=== PATIENT | male | born 1985 | race Caucasian/White ===

== ENCOUNTER 2023-01-27 16:37 | Emergency (ER) | payer SELFPAY ==
[2023-01-27 16:45] VITALS: BP 148/100; PULSE 108; RESP 16; TEMP 37.4; O2SAT 98; BMI 25.1
[2023-01-27 16:52] VITALS: RESP 16
--- NOTE | 2023-01-27 16:54 | PC.NURSE ---
pt states he woke up this morning and sat up in bed, felt dizzy and laid back down. also that when he turns his head fast his vision goes a little blurry. pt had a strong walk back to room and is AxOx4. denies RITTER or N/V. Pt is also here for eval of dental caries on both sides of mouth. denies any foul taste or drainage.
--- NOTE | 2023-01-27 17:00 | ED_ITS ---
HPI - Dental/Oral General Chief complaint: Dental/Oral Stated complaint: UNSTEADY GAIT, ALTERED THINKING, TOOTHACHE Time Seen by Provider: 01/27/23 16:57 Source: patient Mode of arrival: walk-in Limitations: no limitations History of Present Illness HPI Narrative: Patient is a 37-year-old male who presents the emergency department for the evaluation of continued dental pain to tooth #17 and tooth #32. Patient was seen by his dentist on 01/12/23 with multiple dental caries and was placed on amoxicillin and ibuprofen which he has finished. He reports continued pain in the jaw. He denies fevers or drainage. No facial swelling. He further complains of feeling unsteady over the last day. He states when he changes his position and stands up, he feels very dizzy and unsteady, no falls or injuries. He states when he turns his head his vision seems blurry for a moment. He has had no visual loss, headache, double vision, peripheral paresthesias. He has not had any recent upper respiratory symptoms. He denies any history of vertigo. Related Data Previous Rx's Medication Instructions Recorded clindamycin HCl 150 mg capsule 300 mg PO Q6H 10 days #80 caps 01/27/23 ketorolac 10 mg tablet 10 mg PO TID PRN pain #10 tabs 01/27/23 meclizine 25 mg chewable tablet 25 mg PO QID PRN dizziness #12 tabs 01/27/23 (Antivert) ondansetron 4 mg disintegrating 4 mg PO Q6H PRN nausea and 01/27/23 tablet vomiting #12 tabs Allergies Allergy/AdvReac Type Severity Reaction Status Date / Time No Known Drug Allergies Allergy Verified 01/27/23 16:44 Review of Systems ROS Constitutional Denies: fever or chills Eyes Reports: blurry vision Ears, nose, mouth, and throat Denies: throat pain Cardiovascular Denies: chest pain Respiratory Denies: shortness of breath or cough Gastrointestinal Denies: nausea or vomiting Musculoskeletal Denies: back pain or neck pain Integumentary/Breast Denies: rash Neurological Reports: dizziness; Denies: headache Hematologic/Lymphatic Denies: easy bruising Allergic/Immunologic Denies: hives PFSH PFS Social History Smoking status: Current every day smoker Exam Narrative Exam Narrative: Gen.: Awake, alert, in no distress; ambulatory in the Emergency Room with steady gait Head: Normocephalic, atraumatic ENT: Moist mucous membranes; dental caries noted to multiple teeth, tenderness of tooth #17 and tooth #32, worse on the right mandible. No palpable abscess. No redness or swelling under the tongue. Clear speech. Bilateral tympanic membranes are clear. No pharyngeal erythema or tonsillar edema. 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 No unilateral weakness noted Psych: Normal mood and affect Neuro: No focal neuro deficit; patient with clear speech, awake and alert Skin: Warm, dry, intact Constitutional Vital Signs, click to edit/add: Last Vital Signs Temp 99.3 F 01/27/23 16:45 Pulse 108 H 01/27/23 16:45 Resp 16 01/27/23 16:52 BP 148/100 H 01/27/23 16:45 Pulse Ox 98 01/27/23 16:45 O2 Del Method Room Air 01/27/23 16:45 Course Vital Signs Vital signs: Vital Signs Temperature 99.3 F 01/27/23 16:45 Pulse Rate 108 H 01/27/23 16:45 Respiratory Rate 16 01/27/23 16:45 Blood Pressure 148/100 H 01/27/23 16:45 Pulse Oximetry 98 01/27/23 16:45 Oxygen Delivery Method Room Air 01/27/23 16:45 Temperature 99.3 F 01/27/23 16:45 Pulse Rate 108 H 01/27/23 16:45 Respiratory Rate 16 01/27/23 16:52 Blood Pressure 148/100 H 01/27/23 16:45 Pulse Oximetry 98 01/27/23 16:45 Oxygen Delivery Method Room Air 01/27/23 16:45 MDM - Dental/Oral MDM Narrative Medical decision making narrative: After examining the patient, I recommended doing a CT scan of the brain and EKG as he has never had dizziness or vertigo like this previously. He has a normal neuro exam with stable vital signs. I also recommended baseline labs to evaluate electrolytes, kidney function, and blood counts. Patient is uncomfortable with a further workup as he is uninsured. He states he would like to pursue conservative treatment at this time. He states his goal in coming to the emergency department today was to get additional antibiotics until he can follow-up with his dentist. I had a lengthy discussion with the patient about signs and symptoms to watch for regarding his dizziness and unsteady gait. At this time we will defer additional testing and treat with clindamycin, Antivert, Zofran, Toradol for pain. Topical analgesia was provided for the teeth. He understands he should return to the emergency department if symptoms change or worsen. Discharge Plan Discharge Chief Complaint: Dental/Oral Clinical Impression: Dizziness, Dental caries, Toothache Patient Disposition: Home, Self-Care Time of Disposition Decision: 16:58 Condition: Good Prescriptions / Home Meds: New clindamycin HCl 150 mg capsule 300 mg PO Q6H 10 Days Qty: 80 0RF ketorolac 10 mg tablet 10 mg PO TID PRN (Reason: pain) Qty: 10 0RF meclizine [Antivert] 25 mg tablet,chewable 25 mg PO QID PRN (Reason: dizziness) Qty: 12 0RF ondansetron 4 mg tablet,disintegrating 4 mg PO Q6H PRN (Reason: nausea and vomiting) Qty: 12 0RF Instructions: Dizziness (ED), Toothache (ED) Additional Instructions: Follow up with your dentist as scheduled, return to the ER if you develop any worsening of your symptoms Stand Alone Forms: Portal Instructions Referrals: Physician,Non-Staff, MD [Primary Care Provider] - 1 week Discharge Date/Time: 01/27/23 17:17
[2023-01-27] MEDS: BENZOCAINE 30 ML, lidocaine HCL 15 ML MM (17:14)
== END 2023-01-27 17:17 | disposition home or self-care (01) ==
PROVIDERS: Emergency Provider Emergency Medicine
DX: K02.9 Dental caries, unspecified (principal); K08.89 Other specified disorders of teeth and supporting structures; R42 Dizziness and giddiness; F17.210 Nicotine dependence, cigarettes, uncomplicated
CPT/HCPCS: 99283

== ENCOUNTER 2025-05-22 14:48 | Emergency (ER) | payer SELFPAY ==
[2025-05-22 14:53] VITALS: BP 154/99; PULSE 133; TEMP 36.8; O2SAT 98; BMI 25.1
--- NOTE | 2025-05-22 15:20 | ED.GENADUL1 ---
HPI HPI - General Adult General Chief complaint: Back Pain/Injury Stated complaint: LOWER EXTREMITY PAIN Time Seen by Provider: 05/22/25 15:08 Source: patient Mode of arrival: walk-in Limitations: no limitations History of Present Illness HPI narrative: 40-year-old male presents for left lower back pain which goes down his leg towards the ankle. He was doing some lateral stretching exercises 5 days ago when this happened and felt pain in that region. He did not fall and nothing struck him in his back. No pain on the right side. No weakness in his leg. Related Data Previous Rx's ?Medication ?Instructions ?Recorded clindamycin HCl 150 mg capsule 300 mg (2 x 150 mg) PO Q6H 10 days 01/27/23 #80 caps ketorolac 10 mg tablet 10 mg PO TID PRN pain #10 tabs 01/27/23 meclizine 25 mg chewable tablet 25 mg PO QID PRN dizziness #12 tabs 01/27/23 (Antivert) ondansetron 4 mg disintegrating 4 mg PO Q6H PRN nausea and 01/27/23 tablet vomiting #12 tabs acetaminophen 300 mg-codeine 30 mg 1 tab PO Q6H PRN pain 5 days #20 05/22/25 tablet tabs prednisone 10 mg tablet See Rx Instructions .Route 05/22/25 .COMPLEX #30 tabs Allergies Allergy/AdvReac Type Severity Reaction Status Date / Time No Known Drug Allergies Allergy Verified 01/27/23 16:44 Review of Systems ROS Narrative A ten point review of systems is negative except as noted above. PFSH PFSH Social History Smoking status: Current every day smoker Little interest or pleasure in doing things: not at all Feeling down, depressed, or hopeless: not at all Exam Narrative Exam Narrative: Nurses note and vital signs reviewed General:The patient appears well and in no apparent distress.Patient is resting comfortably on cart. Skin:Warm, dry, no pallor noted.There is no rash noted. Head:Normocephalic, atraumatic Eye: Normal conjunctiva, no drainage Ears, Nose, Mouth, and Throat: oral mucosa is moist. Nares patent. Cardiovascular:Regular Rate and Rhythm Respiratory:Patient is in no distress, no accessory muscle use, lungs are clear to auscultation, no wheezing, rales or rhonchi Back:non-tender, no CVA tenderness bilaterally to percussion. GI: Soft and nontender Musculoskeletal: Back is examined. There is a patch of psoriasis on his left lower back. No palpable tenderness. Left hip and knee and ankle are full range of motion. No bruise or rash on his back. Motor strength intact Neurological:A&O, normal speech Psychiatric:Cooperative Constitutional Vital Signs, click to edit/add: Last Vital Signs Temp 98.3 F 05/22/25 14:53 Pulse 133 H 05/22/25 14:53 Resp 18 05/22/25 14:53 BP 154/99 H 05/22/25 14:53 Pulse Ox 98 05/22/25 14:53 O2 Del Method Room Air 05/22/25 14:53 Course Vital Signs Vital signs: Vital Signs Temperature 98.3 F 05/22/25 14:53 Pulse Rate 133 H 05/22/25 14:53 Respiratory Rate 18 05/22/25 14:53 Blood Pressure 154/99 H 05/22/25 14:53 Pulse Oximetry 98 05/22/25 14:53 Oxygen Delivery Method Room Air 05/22/25 14:53 Temperature 98.3 F 05/22/25 14:53 Pulse Rate 133 H 05/22/25 14:53 Respiratory Rate 18 05/22/25 14:53 Blood Pressure 154/99 H 05/22/25 14:53 Pulse Oximetry 98 05/22/25 14:53 Oxygen Delivery Method Room Air 05/22/25 14:53 Medical Decision Making MDM Narrative Medical decision making narrative: X-rays show degenerative changes and he will be prescribed prednisone and Tylenol 3. The patient also he reported some tinnitus in his right ear and is worried about tendon cysts associated with psoriasis. He was referred to ENT for follow-up and was given PCP list as well. Treatment diagnosis and follow-up were discussed with the patient. Differential Diagnosis Differential Diagnosis: Degenerative disc disease, sciatica, lumbar radiculopathy Imaging Data X-ray lumbar: Radiologist's impression: ITS Impressions Lumbar Spine X-Ray 05/22/25 15:42 IMPRESSION: Degenerative changes L5-S1. Otherwise, negative acute osseous abnormality. Impression dictated by: Vazquez Anna M.D. 05/22/2025 4:19 PM [facility]ictation [facility] Electronically authenticated by: [id number] Y Date: 05/22/2025 16:19 Discharge Plan Discharge Chief Complaint: Back Pain/Injury Clinical Impression: Lumbar radiculopathy Patient Disposition: Home, Self-Care Time of Disposition Decision: 16:34 Condition: Good Mode of Transportation: Private Vehicle Prescriptions / Home Meds: New acetaminophen-codeine 300-30 mg tablet 1 tab PO Q6H PRN (Reason: pain) 5 Days Qty: 20 0RF prednisone 10 mg tablet See Rx Instructions .ROUTE .COMPLEX Qty: 30 0RF Rx Instructions: 4 by mouth daily for three days then 3 by mouth daily for three days then 2 by mouth daily for three days then 1 by mouth daily for three days No Action clindamycin HCl 150 mg capsule 300 mg PO Q6H 10 Days Qty: 80 0RF ketorolac 10 mg tablet 10 mg PO TID PRN (Reason: pain) Qty: 10 0RF meclizine [Antivert] 25 mg tablet,chewable 25 mg PO QID PRN (Reason: dizziness) Qty: 12 0RF ondansetron 4 mg tablet,disintegrating 4 mg PO Q6H PRN (Reason: nausea and vomiting) Qty: 12 0RF Print Language: Citizen Of [place] Instructions: Lumbar Radiculopathy (ED) Referrals: Bella Will MD [Physician, Ear, Nose, Throat] - 1 week Physician,Non-Staff, [Primary Care Provider] - 1 week
[2025-05-22] MEDS: KETOROLAC TROMETHAMINE 60 MG/2 ML VIAL IM (15:29)
--- NOTE | 2025-05-22 15:42 | XR_ITS ---
[place] [address] Patient Name: ABENA RUST MRN: [id number] date: 1985 Sex: M Assigned Patient Location: ER Current Patient Location: ED.MAIN Accession/Order Number: [id number] Exam Date: 05/22/2025 15:37 Report Date: 05/22/2025 16:19 At the request of: NANI WEST MD Procedure: XR lumbar spine 2-3V 2 views lumbar spine INDICATION: Atraumatic pain FINDINGS: Straightening and mild reversal normal lumbar lordosis. Vertebral heights preserved. Minimal dextrocurvature at the thoracolumbar junction is evidence of disc space narrowing and facet arthropathy at L5-S1. Otherwise negative acute fracture malalignment. XR/XR lumbar spine 2-3V IMPRESSION: Degenerative changes L5-S1. Otherwise, negative acute osseous abnormality. Impression dictated by: Vazquez Anna M.D. 05/22/2025 4:19 PM Dictation Location: [place] [address] Electronically authenticated by: [id number] Y Date: 05/22/2025 16:19
[2025-05-22 16:55] VITALS: BP 155/93; PULSE 100; O2SAT 98
== END 2025-05-22 17:00 | disposition home or self-care (01) ==
PROVIDERS: Emergency Provider Emergency Medicine
DX: M54.16 Radiculopathy, lumbar region (principal); F17.200 Nicotine dependence, unspecified, uncomplicated
CPT/HCPCS: 72100; 96372; 99284; J1885